=== PATIENT | male | born 1985 ===

== ENCOUNTER 2017-06-10 06:23 | Emergency (ER) | payer MEDICAID ==
[2017-06-10 06:35] VITALS: O2SAT 98
[2017-06-10] MEDS ORDERED: Sodium Chloride 0.9% 1,000 ML IV STA (07:10)
[2017-06-10 07:42] LABS: BASO % 0.1 % (0.0-2.0); EOS # 0.2 K/uL (0.0-0.7); EOS % 1.3 % (0.0-4.0); LYMPH # 0.6 K/uL (1.0-4.3); LYMPH % 4.1 % (20.0-40.0); MEAN CELL VOLUME 88.7 fl (80.0-94.0); MEAN CORPUSCULAR HEMOGLOBIN 30.6 pg (27.0-31.0); MEAN CORPUSCULAR HGB CONC 34.5 g/dL (33.0-37.0); MEAN PLATELET VOLUME 9.8 fl (7.2-11.7); MONO # 0.8 K/uL (0.0-0.8); MONO % 5.5 % (0.0-10.0); NEUT # 12.2 K/uL (1.8-7.0); PLATELET COUNT 163 K/uL (130-400); RBC 5.24 Mil/uL (4.40-5.90); RED CELL DISTRIBUTION WIDTH 13.2 % (11.5-14.5); WHITE BLOOD COUNT 13.7 K/uL (4.8-10.8)
[2017-06-10 07:55] LABS: ALB/GLOB RATIO 1.2 (1.0-2.1); ALBUMIN 4.4 g/dL (3.5-5.0); ALT/SGPT 59 U/L (21-72); AST/SGOT 42 U/L (17-59); BLOOD UREA NITROGEN 23 mg/dl (9-20); CALCIUM 9.5 mg/dL (8.4-10.2); GFR AFRICAN-AMERICAN > 60; GFR NON-AFRICAN AMERICAN > 60; LIPASE 80 U/L (23-300)
[2017-06-10 08:15] LABS: URINE BILIRUBIN NEGATIVE (NEGATIVE); URINE BLOOD NEGATIVE (NEGATIVE); URINE CLARITY CLEAR (Clear); URINE COLOR YELLOW (YELLOW); URINE GLUCOSE (UA) NEG (Normal); URINE LEUKOCYTE ESTERASE NEG Leu/uL (Negative); URINE PROTEIN NEGATIVE (NEGATIVE); URINE UROBILINOGEN 0.2-1.0 mg/dL (0.2-1.0)
--- NOTE | 2017-06-10 08:45 | ED PDOC ---
HPI:Nausea, Vomiting, Diarrhea Time Seen by Provider: 06/10/17 07:04 Chief Complaint (Nursing): GI Problem Chief Complaint (Provider): Vomiting, Diarrhea History Per: Patient History/Exam Limitations: no limitations Onset/Duration Of Symptoms: Hrs Current Symptoms Are (Timing): Still Present Associated Symptoms: Nausea, Vomiting, Diarrhea. denies: Fever, Chest Pain Additional Complaint(s): Roland Puga is a 32 year old male with no past medical history who presents to the ED with complains of vomiting and diarrhea with associated weakness, onset early this morning. Patient reports 3 episodes of vomiting and multiple episodes of non-bloody diarrhea. He denies having any contact with ill individuals and also denies any fever, abdominal pain, chest pain, or shortness of breath. Patient offers no other medical complaints at this time. PMD:Laura Wu Past Medical History Reviewed: Historical Data, Nursing Documentation, Vital Signs Vital Signs: Last Vital Signs Temp 97.4 F L 06/10/17 06:30 Pulse 87 06/10/17 06:30 Resp 17 06/10/17 06:30 BP 132/84 06/10/17 06:30 Pulse Ox 98 06/10/17 06:30 - Medical History PMH: Asthma - Surgical History Surgical History: No Surg Hx - Family History Family History: States: Unknown Family Hx - Social History Current smoker - smoking cessation education provided: No - Home Medications Home Medications: Ambulatory Orders Medication Instructions Recorded Dicyclomine [Bentyl] 10 mg PO TID PRN #10 cap 06/10/17 Ondansetron [Zofran] 4 mg PO Q6H PRN #10 tab 06/10/17 - Allergies Allergies/Adverse Reactions: Allergies Allergy/AdvReac Type Severity Reaction Status Date / Time aspirin [From [facility]] Allergy SWELLING Verified 06/10/17 06:54 citric acid Allergy SWELLING Verified 06/10/17 06:54 [From [facility]] passion fruit Allergy ANAPHYLAXIS Verified 06/10/17 06:54 shellfish derived Allergy ANAPHYLAXIS Verified 06/10/17 06:54 sodium bicarbonate Allergy SWELLING Verified 06/10/17 06:54 [From [facility]] Review of Systems ROS Statement: Except As Marked, All Systems Reviewed And Found Negative Constitutional: Positive for: Weakness (mild). Negative for: Fever Cardiovascular: Negative for: Chest Pain Respiratory: Negative for: Shortness of Breath Gastrointestinal: Positive for: Nausea, Vomiting, Diarrhea. Negative for: Abdominal Pain, Hematochezia Physical Exam - Reviewed Nursing Documentation Reviewed: Yes Vital Signs Reviewed: Yes - Physical Exam Appears: Positive for: Non-toxic, No Acute Distress Head Exam: Positive for: ATRAUMATIC, NORMAL INSPECTION, NORMOCEPHALIC Skin: Positive for: Normal Color, Warm, Dry Eye Exam: Positive for: EOMI, Normal appearance, PERRL Neck: Positive for: Normal, Painless ROM, Supple Cardiovascular/Chest: Positive for: Regular Rate, Rhythm. Negative for: Murmur Respiratory: Positive for: Normal Breath Sounds. Negative for: Respiratory Distress Gastrointestinal/Abdominal: Positive for: Normal Exam, Soft. Negative for: Tenderness Back: Positive for: Normal Inspection. Negative for: L CVA Tenderness, R CVA Tenderness, Vertebral Tenderness Extremity: Positive for: Normal ROM. Negative for: Pedal Edema, Deformity, Swelling Neurologic/Psych: Positive for: Alert, Oriented. Negative for: Motor/Sensory Deficits - Laboratory Results Result Diagrams: 06/10/17 07:35 06/10/17 07:35 - ECG O2 Sat by Pulse Oximetry: 98 (RA) Pulse Ox Interpretation: Normal Medical Decision Making Medical Decision Making: Time: 7:10 Plan: --ED Urine dipstick --CBC --Reglan 10 mg IVP --IV Fluids Workup for gastroenteritis. Reevaluation to follow. labs reviewed, mild elev WBC and evidence of dehydration. additional IVF given, PO challenge afterwards successful Abdomen nontender on re-evaluation x2 Scribe Attestation: Documented by Juani Lynn, acting as a scribe for Matthew Enciso Do. Provider Scribe Attestation: All medical record entries made by the Scribe were at my direction and personally dictated by me. I have reviewed the chart and agree that the record accurately reflects my personal performance of the history, physical exam, medical decision making, and the department course for this patient. I have also personally directed, reviewed, and agree with the discharge instructions and disposition. Disposition - Clinical Impression Clinical Impression: Gastroenteritis - Patient ED Disposition Is Patient to be Admitted: No Counseled Patient/Family Regarding: Studies Performed, Diagnosis, Need For Followup, Rx Given - Disposition Referrals: Saurav Whitten MD [Medical Doctor] - Disposition: Routine/Home Disposition Time: 12:30 Condition: STABLE Additional Instructions: Drink plenty of fluids, return to ER for any worse or new symptoms Prescriptions: Dicyclomine [Bentyl] 10 mg PO TID PRN #10 cap PRN Reason: Gi Distress Ondansetron [Zofran] 4 mg PO Q6H PRN #10 tab PRN Reason: Nausea/Vomiting Instructions: Diarrhea in Adolescents and Adults Forms: [facility] (Bengali)
[2017-06-10 09:05] LABS: BANDS 2 % (0-2); EOSINOPHIL 2 % (0-7); MONOCYTE 7 % (0-10); NEUTROPHIL 89 % (42-75); PLATELET ESTIMATE NORMAL (NORMAL); TOTAL CELLS COUNTED 100
[2017-06-10 09:08] LABS: ANISOCYTOSIS SLIGHT; LARGE PLATELETS PRESENT; POIKILOCYTOSIS SLIGHT
[2017-06-10 09:09] LABS: STOMATOCYTES SLIGHT
[2017-06-10] MEDS: Lactated Ringer's 1,000 ML IV SCH ×2 (10:54→12:20)
[2017-06-10 12:58] VITALS: BP 132/74; PULSE 85; RESP 19; TEMP 98.6
== END 2017-06-10 12:59 | disposition home or self-care (01) ==
LOC: H.ER 06:23
DX: K52.9 Noninfective gastroenteritis and colitis, unspecified (principal); J45.909 Unspecified asthma, uncomplicated
CPT/HCPCS: 80053; 81003; 82948; 83690; 85025; 96374; 99285; J2765; J7040; J7120